=== PATIENT | female | born 1990 | race Caucasian/White ===

== ENCOUNTER 2017-07-12 07:40 | Outpatient (CLI) | payer OTHER ==
[2017-07-12 08:30] LABS: BASOPHILS # (AUTO) 0.2 K/uL (0.00-0.22); BASOPHILS % (AUTO) 1.9 % (0.0-2.0); EOSINOPHILS # (AUTO) 1.4 K/uL (0-0.4); EOSINOPHILS % (AUTO) 12.8 % (0.0-4.0); HEMOGLOBIN 13.4 g/dL (12.0-16.0); LYMPHOCYTES # (AUTO) 2.2 K/uL (2.5-16.5); LYMPHOCYTES % (AUTO) 20.4 % (20.5-51.1); MEAN CORPUSCULAR HEMOGLOBIN 29 pg (27-31); MEAN CORPUSCULAR HGB CONC 34 g/dL (33-37); MEAN CORPUSCULAR VOLUME 87 fL (80-94); MONOCYTES # (AUTO) 0.6 K/uL (0.8-1.0); MONOCYTES % (AUTO) 5.3 % (1.7-9.3); NEUTROPHILS # (AUTO) 6.2 K/uL (1.8-7.7); NEUTROPHILS % (AUTO) 59.6 % (42.2-75.2); PLATELET COUNT (AUTO) 289 K/uL (140-450); RED BLOOD CELL COUNT(AUTO) 4.61 MIL/uL (4.20-5.40); RED CELL DISTRIBUTION WIDTH 12.3 % (11.6-13.7); WHITE BLOOD COUNT (AUTO) 10.6 K/uL (4.8-10.8)
[2017-07-12 09:15] LABS: ALBUMIN 3.6 g/dL (3.4-5.0); ANION GAP 11.5 (8-16); CARBON DIOXIDE 27.5 mmol/L (21-32); CREATININE 0.7 mg/dL (0.6-1.3); THYROID STIMULATING HORMONE 1.46 uIU/mL (0.34-3.74); TOTAL BILIRUBIN 0.4 mg/dL (0.0-1.0)
[2017-07-13 09:24] LABS: T4 FREE (DIRECT) 0.96 ng/dL (0.82-1.77)
== END 2017-07-12 21:55 | disposition home or self-care (01) ==
LOC: MLB 07:40
PROVIDERS: ATTEND Family Medicine
DX: Z13.1 Encounter for screening for diabetes mellitus (principal); Z12.11 Encounter for screening for malignant neoplasm of colon; E55.9 Vitamin D deficiency, unspecified; E03.9 Hypothyroidism, unspecified; E78.9 Disorder of lipoprotein metabolism, unspecified; N39.0 Urinary tract infection, site not specified
CPT/HCPCS: 36415; 80053; 82306; 83036; 84439; 84443; 84480; 85025

== ENCOUNTER 2019-02-16 13:29 | Emergency (ER) | payer OTHER ==
[~2019-02-16] VITALS: Ht 172.7 cm; Wt 146.2 kg
[2019-02-16 13:33] VITALS: BP 136/75
--- NOTE | 2019-02-16 14:15 | NUR ---
PT AMBULATED TO BED 4 AT THIS TIME.
--- NOTE | 2019-02-16 14:30 | NUR ---
C/O RT WRIST PAIN X4 DAYS. 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 NON-RADIATING SHARP AND DULL RT WRIST PAIN AT 2/10 THAT INCREASES WITH MOVEMENT/LIFTING/HOLDING/WRITING. PT DENIES TRAUMA, NO SWELLING, BRUISING, REDNESS OR DEFORMITY PRESENT. DENIES N/V/D; SKIN IS PINK/WARM/DRY; AAOX4 WITH EVEN AND STEADY GAIT; PT DENIES ANY FEVER, CP, SOB, OR COUGH AT THIS TIME; PATIENT STATES PAIN OF 2/10 AT THIS TIME; VSS; PATIENT POSITIONED FOR COMFORT; HOB ELEVATED; BEDRAILS UP X1; BED DOWN. ER MD MADE AWARE OF PT STATUS.
[2019-02-16] MEDS ORDERED: IBUPROFEN 800 MG TAB PO ONE (15:05)
[2019-02-16 16:10] VITALS: BP 139/91
== END 2019-02-16 16:10 | disposition home or self-care (01) ==
LOC: MED 13:29
DX: S66.911A Strain of unspecified muscle, fascia and tendon at wrist and hand level, right hand, initial encounter (principal); X58.XXXA Exposure to other specified factors, initial encounter; Y93.E9 Activity, other interior property and clothing maintenance; Y92.89 Other specified places as the place of occurrence of the external cause; Y99.8 Other external cause status
CPT/HCPCS: 99283

== ENCOUNTER 2019-09-27 10:02 | Emergency (ER) | payer OTHER ==
[~2019-09-27] VITALS: Ht 172.7 cm; Wt 142.9 kg
[2019-09-27 10:07] VITALS: BP 146/98
--- NOTE | 2019-09-27 10:15 | NUR ---
Patient transferred to bed 3 via wheelchair by tech. RN evaluating patient at bedside.
[2019-09-27] MEDS ORDERED: KETOROLAC 60 MG/2 ML VIAL IM ONE (10:40)
--- NOTE | 2019-09-27 10:43 | NUR ---
PT DENIES . PT WAS UNABLE TO URINATE. TORADOL GIVEN IM PER MD ORDER.
--- NOTE | 2019-09-27 11:58 | NUR ---
2 CUP OF WATER OFFERED. FINALLY PT WENT TO BATH FOR URINE SAMPLE.
--- NOTE | 2019-09-27 12:15 | NUR ---
URINE SAMPLE COLLECTED. URINE HCG DONE. URINE DIP DONE WELL.
[2019-09-27] MEDS ORDERED: MORPHINE SULFATE 2 MG/ML SYR IM ONE (12:45)
[2019-09-27 13:13] VITALS: BP 143/79
== END 2019-09-27 12:50 | disposition home or self-care (01) ==
LOC: MED 10:02
DX: S39.012A Strain of muscle, fascia and tendon of lower back, initial encounter (principal); X58.XXXA Exposure to other specified factors, initial encounter; Y93.89 Activity, other specified; Y92.89 Other specified places as the place of occurrence of the external cause; Y99.8 Other external cause status
CPT/HCPCS: 72100; 81002; 81025; 96372; 99284; J1885; J2270

== ENCOUNTER 2021-03-10 12:51 | Emergency (ER) | payer OTHER ==
[~2021-03-10] VITALS: Ht 172.7 cm; Wt 140.2 kg
[2021-03-10 12:57] VITALS: BP 168/94
--- NOTE | 2021-03-10 13:05 | NUR ---
31 Y/O F BIB SELF FROM WORK, C/O R ARM ABSCESS FOR 1 YEAR THAT HAS GROWN LARGER AND INCREASED IN PAIN. AREA IS WARM, REDNESS PRESENT, ITCHING 5 DAY AGO. DENIES N/V/D; SKIN IS PINK/WARM/DRY; AAOX4 WITH EVEN AND STEADY GAIT; LUNGS CLEAR BL; HR EVEN AND REGULAR; PT DENIES ANY FEVER, CP, SOB, OR COUGH AT THIS TIME; PATIENT STATES PAIN OF 6/10 AT THIS TIME; VSS; PATIENT POSITIONED FOR COMFORT; HOB ELEVATED; BEDRAILS UP X2; BED DOWN. ER MD MADE AWARE OF PT STATUS. PMH: DENIES MED: IBUPROFEN 600MG LAST DOSE LAST NIGHT NKA
[2021-03-10] MEDS ORDERED: LIDOCAINE 2% 1000 MG/50 ML VIAL INJ ONE (13:15)
[2021-03-10] MEDS ORDERED: CEPH-588 PO (14:19)
[2021-03-10 14:29] VITALS: BP 168/94
== END 2021-03-10 14:30 | disposition home or self-care (01) ==
LOC: MED 12:51
DX: L02.413 Cutaneous abscess of right upper limb (principal)
CPT/HCPCS: 10060; 99284; J2001; 90715

== ENCOUNTER 2021-03-13 07:33 | Emergency (ER) | payer OTHER ==
[~2021-03-13] VITALS: Ht 172.7 cm; Wt 136.1 kg
[~2021-03-13 07:33] MED LIST: CEPH-588 PO
[2021-03-13 07:41] VITALS: BP 141/93
[2021-03-13 08:12] VITALS: BP 141/93
== END 2021-03-13 08:13 | disposition home or self-care (01) ==
LOC: MED 07:33
DX: L02.413 Cutaneous abscess of right upper limb (principal); Z79.899 Other long term (current) drug therapy
CPT/HCPCS: 99281

== ENCOUNTER 2021-07-24 07:30 | Outpatient (CLI) | payer OTHER ==
[2021-07-24 08:17] LABS: BASOPHILS % (AUTO) 0.6 % (0.0-2.0); EOSINOPHILS # (AUTO) 0.2 K/uL (0-0.4); EOSINOPHILS % (AUTO) 2.6 % (0.0-4.0); HEMATOCRIT 39.3 % (36-48); HEMOGLOBIN 13.4 g/dL (12.0-16.0); LYMPHOCYTES # (AUTO) 2.3 K/uL (2.5-16.5); LYMPHOCYTES % (AUTO) 29.4 % (20.5-51.1); MEAN CORPUSCULAR HEMOGLOBIN 29 pg (27-31); MEAN CORPUSCULAR HGB CONC 34 g/dL (33-37); MEAN CORPUSCULAR VOLUME 85.9 fL (80-94); MONOCYTES # (AUTO) 0.5 K/uL (0.8-1.0); NEUTROPHILS # (AUTO) 4.8 K/uL (1.8-7.7); NEUTROPHILS % (AUTO) 61.4 % (42.2-75.2); PLATELET COUNT (AUTO) 313 K/uL (140-450); RED BLOOD CELL COUNT(AUTO) 4.58 MIL/uL (4.20-5.40); RED CELL DISTRIBUTION WIDTH 13.3 % (11.6-13.7); WHITE BLOOD COUNT (AUTO) 7.9 K/uL (4.8-10.8)
[2021-07-24 08:54] LABS: ALBUMIN 3.5 g/dL (3.4-5.0); ANION GAP 14.3 (8-16); CARBON DIOXIDE 24.8 mmol/L (21-32); CHOL/HDL RATIO 5.4 (1-4.5); CREATININE 0.7 mg/dL (0.6-1.3); FREE T4 (FREE THYROXINE) 0.74 ng/dL (0.76-1.46); POTASSIUM 4.1 mmol/L (3.5-5.1); THYROID STIMULATING HORMONE 2.13 uIU/mL (0.34-3.74); TOTAL BILIRUBIN 0.3 mg/dL (0.0-1.0)
== END 2021-07-24 20:16 | disposition home or self-care (01) ==
LOC: MLB 07:30
DX: Z00.00 Encounter for general adult medical examination without abnormal findings (principal); E66.01 Morbid (severe) obesity due to excess calories
CPT/HCPCS: 36415; 80053; 82306; 83036; 84439; 84443; 85025